=== PATIENT | female | born 1960 | race Caucasian/White ===

== ENCOUNTER 2022-07-17 08:05 | Observation (INO) | payer OTHER, MEDICAID, SELFPAY ==
[2022-07-17] VITALS (11 sets, daily range): BP systolic 91–139; BP diastolic 57–83; PULSE 68–99; RESP 16–20; TEMP 36.6–37.2; O2SAT 92–99; BMI 25.6; BMI 26.6
[2022-07-17 08:50] LABS: Urine Appearance Clear (CLEAR); Urine Color Yellow (Yellow)
[2022-07-17 08:51] LABS: Add Urine Microscopic? YES; Bilirubin Urine Neg (Negative); Blood Urine 3+ (Negative); Glucose Urine UA Norm (Normal); Ketones Urine 1+ (Negative); Leukocyte Esterase Urine Negative (Negative); Nitrate Urine Negative (Negative); Protein Urine Trace (Negative); Urobilinogen Urine Neg (Negative); pH Urine 6 (5-7)
[2022-07-17 08:57] LABS: Add Urine Culture? No; Mucus Urine 1+ /hpf; Squamous Epithelial Cell Urine 0-4 /hpf (0-5)
[2022-07-17 09:05] LABS: Basophils % 0.3 %; Eosinophils % 0.1 %; Hematocrit 43.9 % (37.0-47.0); Hemoglobin 14.3 g/dL (11.5-15.3); Lymphocytes # 2.1 10^3/uL (0.8-4.8); Lymphocytes % 15.1 %; Mean Corpuscular HGB Conc 32.6 g/dL (30.0-36.0); Mean Corpuscular Hemoglobin 28.3 pg (28.0-34.0); Mean Corpuscular Volume 86.8 fl (81-99); Mean Platelet Volume 9.7 fL (7.4-10.4); Monocytes # 0.9 10^3/uL (0.2-0.9); Monocytes % 6.6 %; Neutrophils # 10.63 10^3/uL (1.8-7.7); Neutrophils % 77.2 %; Nucleated Red Blood Cells % 0 %; Platelet Count 315 10^3/cmm (130-400); Red Blood Count 5.06 10^6/uL (4.1-5.3); Red Cell Distribution Width 13.2 % (12.1-15.1); White Blood Count 13.7 10^3/uL (4.0-10.0)
[2022-07-17 09:27] LABS: Alanine Aminotransferase 22 U/L (0-33); Albumin Level 4.6 g/dL (3.5-5.2); Alkaline Phosphatase 97 U/L (35-105); Aspartate Amino Transferase 15 U/L (0-32); Blood Urea Nitrogen 10 mg/dL (8-23); Calcium 9.6 mg/dL (8.5-10.5); Carbon Dioxide 26 mmol/L (22-29); Chloride 96 mmol/L (98-107); Globulin 3.1 g/dL (1.3-4.6); Glomerular Filtration Rate 84.5 mL/min (90-130); Glucose 111 mg/dL (65-115); Lipase 17 U/L (13-60); Osmolality Calculated 276 mOsm/kg (285-295); Sodium 133 mmol/L (136-145); Total Bilirubin 0.6 mg/dL (0.15-1.2); Total Protein 7.7 g/dL (6.6-8.7)
--- NOTE | 2022-07-17 09:29 | CT_ITS ---
WS: [id number] CT ABDOMEN PELVIS TECHNIQUE: Contrast-enhanced CT of the abdomen and pelvis with coronal and sagittal reformatted image s. CLINICAL INFORMATION: bilat lower abd pain; ? lower gi bleeding COMPARISON: None. DLP: 452.[address] scans at [facility] use at least one of these dose optimization techniques: automated e xposure control; mA and/or kV adjustment per patient size (includes targeted exams where dose is matc hed to clinical indication); or iterative reconstruction. FINDINGS: Diffuse thickening with significant inflammatory stranding involving the sigmoid colon compatible wit h acute diverticulitis. Surrounding inflammatory stranding and edema. Small amount of associated flui d and free fluid in the pelvis. No evidence of drainable abscess or fluid collection. Recommend follo w-up to resolution. Lung bases are well aerated. Mild diffuse fatty infiltration of the liver. RIGHT hepatic cyst or cave rnous hemangioma measuring 3.3 CM. Normal gallbladder. Normal spleen. Normal GE junction. Normal panc reatic parenchymal enhancement. Normal portal vein and splenic vein. Normal caliber abdominal aorta. Celiac and SMA are patent. A few reactive lower abdominal and aortic bifurcation lymph nodes. Induration in the lower abdominal mesen lexi from the diverticulitis. Adrenal glands are normal. Normal renal parenchymal enhancement. Small bilateral renal cysts. No hydronephrosis. 2.6 cm LEFT lower pole renal cyst. Benign bone islands in t he ileum. CT/CT abdomen pelvis w con* [id number] IMPRESSION: 1. Acute diverticulitis with prominent diffuse inflammatory stranding and olga a with a small amount of surrounding fluid about the sigmoid colon. No drainabl e abscess or fluid collection. Recommend follow-up to resolution. 2. A few reactive lymph nodes in the lower abdomen and bifurcation. 3. No other acute findings. Notified Sheltonritesh Magaña MD at 07/17/2022 10:15 AM.
--- NOTE | 2022-07-17 09:30 | W.ED.ABDPA2 ---
HPI - Abdominal Pain General: Chief Complaint: Abdominal Pain Stated Complaint: sent for CT scan Time Seen by Provider: 07/17/22 08:39 Source: patient Mode of arrival: ambulatory Limitations: no limitations History of Present Illness: Patient with complaints of bilateral lower abdominal pain since yesterday. She states the pain has been constant. She states the pain is sharp. She states she had a low-grade temperature of 100 last night and some chills. No fever today. She also complains of some mucoid stools since yesterday. She states there is a pink tinge to her stool this morning. See nursing assessment. Patient was seen and [facility] today and referred here for CT scan of the abdomen. Patient states she has a history of chronic microscopic hematuria. She states she was diagnosed with urinary tract infection 2 weeks ago placed on Bactrim. Possible history also includes internal hemorrhoids. She denies any previous abdominal surgery. Associated Symptoms: Reports change in bowel habits; Denies chills, dysuria, fever(s), nausea and vomiting Review of Systems Const: Denies: fever(s) or chills Eyes: Denies: change in vision ENMT: Denies: throat pain Card: Denies: chest pain or palpitations Resp: Denies: dyspnea or wheezing GI: Reports: abdominal pain, change in bowel habits and mucus in stool; Denies: nausea or vomiting : Denies: flank pain or dysuria Musc: Denies: neck pain or back pain Skin/Breast: Denies: rash or pruritus Neuro: Denies: headache(s) or numbness in extremities Psych: Denies: anxiety Joel/Lymph: Denies: enlarged lymph nodes PFSH ED Supplemental PFS Information: No previous abdominal surgery. Physical Exam Const: COMMON NORMALS: no acute distress, patient oriented x3, alert and well nourished GENERAL APPEARANCE: cooperative HENMT: COMMON NORMALS: normocephalic and atraumatic HEAD & SCALP: normocephalic and atraumatic Eye: COMMON NORMALS: EOMs intact bilaterally Neck/C-Spine: COMMON NORMALS: full ROM, no lymphadenopathy, supple and no JVD Lymph: LYMPHATIC: no lymphadenopathy noted Chest: COMMONS NORMALS: normal inspection of the chest and normal palpation of entire chest wall Resp: COMMON NORMALS: normal respiratory effort, No retractions, No use of accessory muscles and clear to auscultation bilaterally AUSCULTATION: clear to auscultation bilaterally Cardio: COMMON NORMALS: no JVD, regular rate, regular rhythm and Peripheral pulses 2+ throughout RATE: regular rate RHYTHM: regular rhythm PERIPHERAL PULSES: Peripheral pulses 2+ throughout GI: COMMON NORMALS: Soft to palpation PALPATION: Yes Soft to palpation OTHER: Mild right lower quadrant subpubic and left lower quadrant abdominal pain. No guarding or rebound. No masses palpated. Normoactive bowel sounds throughout. No pulsatile masses or bruits. : COMMON NORMALS: Yes no CVA tenderness BLADDER/KIDNEY EXAM: Yes no CVA tenderness OTHER: I inspected the anus and saw nothing acute. Anus appears normal. Anal exam attended by nurse anesthesiology physician assistant. Back/Pelvis: COMMON NORMALS: no CVA tenderness Extremity: COMMON NORMALS: normal to inspection and full ROM Neuro: COMMON NORMALS: patient oriented x3, CN's II-XII intact bilaterally, moves all extremities, no focal motor deficits and no sensory deficits noted SENSORIUM/ORIENTATION: Yes alert Psych: COMMON NORMALS: mental status grossly normal, Normal thought process present, cooperative, normal affect and speech normal SPEECH: Yes normal speech THOUGHT PROCESS: Normal thought process present Skin: COMMON NORMALS: no rashes or lesions noted GENERAL SKIN EXAM: no rashes or lesions noted Course Vital Signs: Vital signs: Vital Signs Temperature 99.0 F 07/17/22 08:18 Pulse Rate 72 07/17/22 10:38 Respiratory Rate 18 07/17/22 10:38 Blood Pressure 129/68 07/17/22 10:38 Pulse Oximetry 97 07/17/22 10:38 Oxygen Delivery Me thod 07/17/22 10:38 MDM - Abdominal Pain Medical Decision Making 1040: Discussed with hospitalist Dr. Gabriel. Patient will be observation patient to medical floor. Due to the severity of the diverticulitis, patient will need to be observed in the hospital overnight. Lab Data Patient has microscopic hematuria. : 07/17/22 08:54 07/17/22 08:54 Labs/Radiology: Radiology Impressions Abdomen/Pelvis CT 07/17/22 09:29 IMPRESSION: 1. Acute diverticulitis with prominent diffuse inflammatory stranding and edema with a small amount of surrounding fluid about the sigmoid colon. No drainable abscess or fluid collection. Recommend follow-up to resolution. 2. A few reactive lymph nodes in the lower abdomen and bifurcation. 3. No other acute findings. Notified Sheltonritesh Magaña MD at 07/17/2022 10:15 AM. Laboratory Results WBC 13.7 10^3/uL (4.0-10.0) H 07/17/22 08:54 RBC 5.06 10^6/uL (4.1-5.3) 07/17/22 08:54 Hgb 14.3 g/dL (11.5-15.3) 07/17/22 08:54 Hct 43.9 % (37.0-47.0) 07/17/22 08:54 MCV 86.8 fl (81-99) 07/17/22 08:54 MCH 28.3 pg (28.0-34.0) 07/17/22 08:54 MCHC 32.6 g/dL (30.0-36.0) 07/17/22 08:54 RDW 13.2 % (12.1-15.1) 07/17/22 08:54 Plt Count 315 10^3/cmm (130-400) 07/17/22 08:54 MPV 9.7 fL (7.4-10.4) 07/17/22 08:54 Neut % (Auto) 77.2 % 07/17/22 08:54 Lymph % (Auto) 15.1 % 07/17/22 08:54 Rhea % (Auto) 6.6 % 07/17/22 08:54 Eos % (Auto) 0.1 % 07/17/22 08:54 Baso % (Auto) 0.3 % 07/17/22 08:54 Neut # (Auto) 10.63 10^3/uL (1.8-7.7) H 07/17/22 08:54 Lymph # (Auto) 2.1 10^3/uL (0.8-4.8) 07/17/22 08:54 Rhea # (Auto) 0.9 10^3/uL (0.2-0.9) 07/17/22 08:54 Eos # (Auto) 0.0 10^3/uL (0.0-0.8) 07/17/22 08:54 Baso # (Auto) 0.0 10^3/uL (0.0-0.1) 07/17/22 08:54 Nucleated RBC % (auto) 0 % 07/17/22 08:54 Nucleated RBCs # 0.0 /100WBC 07/17/22 08:54 Sodium 133 mmol/L (136-145) L 07/17/22 08:54 Potassium 4.0 mmol/L (3.5-5.1) 07/17/22 08:54 Chloride 96 mmol/L (98-107) L 07/17/22 08:54 Carbon Dioxide 26 mmol/L (22-29) 07/17/22 08:54 Anion Gap 15.0 (5-19) 07/17/22 08:54 BUN 10 mg/dL (8-23) 07/17/22 08:54 Creatinine 0.7 mg/dL (0.5-0.9) 07/17/22 08:54 GFR Calculation 84.5 mL/min (90-130) L 07/17/22 08:54 Glucose 111 mg/dL (65-115) 07/17/22 08:54 Calculated Osmolality 276 mOsm/kg (285-295) L 07/17/22 08:54 Calcium 9.6 mg/dL (8.5-10.5) 07/17/22 08:54 Total Bilirubin 0.6 mg/dL (0.15-1.2) 07/17/22 08:54 AST 15 U/L (0-32) 07/17/22 08:54 ALT 22 U/L (0-33) 07/17/22 08:54 Alkaline Phosphatase 97 U/L (35-105) 07/17/22 08:54 Total Protein 7.7 g/dL (6.6-8.7) 07/17/22 08:54 Albumin 4.6 g/dL (3.5-5.2) 07/17/22 08:54 Globulin 3.1 g/dL (1.3-4.6) 07/17/22 08:54 Lipase 17 U/L (13-60) 07/17/22 08:54 Urine Color Yellow (Yellow) 07/17/22 08:41 Urine Appearance Clear (CLEAR) 07/17/22 08:41 Urine pH 6 (5-7) 07/17/22 08:41 Ur Specific [place] 1.030 (1.005-1.030) 07/17/22 08:41 Urine Protein Trace (Negative) 07/17/22 08:41 Urine Glucose (UA) Norm (Normal) 07/17/22 08:41 Urine Ketones 1+ (Negative) H 07/17/22 08:41 Urine Blood 3+ (Negative) H 07/17/22 08:41 Urine Nitrate Negative (Negative) 07/17/22 08:41 Urine Bilirubin Neg (Negative) 07/17/22 08:41 Urine Urobilinogen Neg mg/dL (Negative) 07/17/22 08:41 Ur Leukocyte Esterase Negative (Negative) 07/17/22 08:41 Urine RBC 10-15 /hpf (0-2) H 07/17/22 08:41 Urine WBC None /hpf (0-5) 07/17/22 08:41 Ur Squamous Epith Cells 0-4 /hpf (0-5) H 07/17/22 08:41 Amorphous Sediment Not Reportable 07/17/22 08:41 Urine Bacteria None /hpf (NONE) 07/17/22 08:41 Urine Mucus 1+ /hpf 07/17/22 08:[address] Abd/Pel: Radiologist's impression: Patient has acute diverticulitis with severe inflammatory changes around the distal colon. There is moderate amount of fluid in the pelvis. No perforation found per radiologist. Radiologist deems the diverticulitis is severe. Discharge Plan Discharge Patient Disposition: Placed in Observation Clinical Impression: Diverticulitis Coding Level of Care Code ED Sheather for Chg Fwd Exam Comprehensive
[2022-07-17] MEDS: iohexol 350 mg/mL 100 mL Btl IV (09:53)
[2022-07-17] MEDS: ceFOXitin 2,000 MG in sodium chloride 0.9% (plus) 50 ML 100 MG IV (10:35)
--- NOTE | 2022-07-17 11:08 | PM.HP ---
Providers/Chief Complaint Admitting Physician: Jim Gabriel MD Chief Complaint: sent for CT scan History of Present Illness Yanci Webb is a 61 year old female presenting to the emergency department with complaints of lower quadrant abdominal pain, more in the suprapubic area since yesterday. Pain has been severe at times, increasing when she passes mucus with stooling. She reports chills last night. Has not taken her temperature. No nausea or vomiting. Had an infection several weeks ago, UTI for which she received Bactrim. Had some diarrhea initially with the treatment which was only 3 days but this went away over 3 days ago. No prior history of diverticulitis. No history of colonoscopy. No family history of colon cancer. Review of Systems General: Reports: 10 or more systems reviewed and unremarkable except in HPI and below Const: Reports: chills and fatigue Eyes: Denies: change in vision ENMT: Denies: throat pain Card: Denies: chest pain Resp: Denies: dyspnea GI: Reports: abdominal pain and GI cramping; Denies: nausea, vomiting, hematochezia or melena : Denies: flank pain Musc: Denies: neck pain Skin/Breast: Denies: rash Neuro: Denies: headache(s) Psych: Reports: anxiety and depression Endo: Denies: polyuria Joel/Lymph: Denies: easy bruising All/Imm: Denies: urticaria Medications/Allergies Home Medications Medication Instructions Recorded Confirmed Last Taken Type cholecalciferol (vitamin D3) 25 1,000 unit PO EVERY OTHER DAY 07/17/22 07/17/22 Unknown History mcg (1,000 unit) tablet (Vitamin D3) multivitamin with minerals-folic 2 tab PO DAILY 07/17/22 07/17/22 07/16/22 History acid 150 mcg chewable tablet mvi,min-folic acid 400 mcg-black 1 tab PO DAILY 07/17/22 07/17/22 07/16/22 History coh 40 mg-isoflav 40 mg-jujube tablet (Estroven Menopause) venlafaxine 75 mg capsule,extended 75 mg PO QAM 07/17/22 07/17/22 07/16/22 History release 24 hr (Effexor XR) Allergies Allergy/AdvReac Type Severity Reaction Status Date / Time tetracycline Allergy Unknown Verified 07/17/22 08:49 PFSH Acute PFSH: Medical History (Updated 07/17/22 @ 11:13 by Jim Gabriel MD) Depression with anxiety Microscopic hematuria Family History (Updated 07/17/22 @ 11:11 by Jim Gabriel MD) Other CAD (coronary artery disease) Stroke Social History (Updated 07/17/22 @ 11:11 by Jim Gabriel MD) Smoking and tobacco status: never smoked Alcohol intake: current Alcohol intake frequency: few times a week Substance/Drug Use: never Other PFSH information: Supplemental [facility] Information: Denies any previous surgeries Vitals/I&O/Wt Last Vital Signs Temp 99.0 F 07/17/22 08:18 Pulse 72 07/17/22 10:38 Resp 18 07/17/22 10:38 BP 129/68 07/17/22 10:38 Pulse Ox 97 07/17/22 10:38 O2 Del Method 07/17/22 10:38 Weight last 48 hrs Weight 63.503 kg Physical Exam Narrative: General exam is a white female, who appears somewhat anxious but is able to communicate her condition well. HEENT: Atraumatic and normocephalic. Pupils equally round. Oropharynx clear. Neck is supple no lymphadenopathy or thyromegaly Cardiovascular regular rate and rhythm without murmur, no S3 or S4 Lungs clear no wheezing or crackles Abdomen is soft. Positive bowel sounds. Tenderness lower quadrants. No rebound. Skin no rash Neuro no obvious focal deficits. Data : 07/17/22 08:54 07/17/22 08:54 Other Labs: LFTs are within normal limits Lipase normal Calcium 9.6, normal Urinalysis with 10-15 red blood cells, no white blood cells, no bacteria Abdominal pelvis CT demonstrates acute diverticulitis, but the sigmoid colon with a small amount of surrounding fluid and a few reactive lymph nodes. No definite abscess. No evidence of perforation. A&P Assessment and plan (1) Diverticulitis: Patient presents with acute diverticulitis. She has significant pain, currently is adverse to p.o. intake, and having quite a bit of cramping with any bowel movement. With her elevated white blood cell count, small amount of fluid around the sigmoid colon it may be best to observe her in the hospital on IV antibiotics until improvement is made. Initiate IV Zosyn Secondary to a history of chills, slight elevation in temperature go ahead and obtain cultures. She may have already received 1 dose of Mefoxin from the emergency department prior to drawing of the culture. Repeat laboratory tomorrow, if clinically improving could consider discharge home on fluoroquinolone and Flagyl Secondary to her recent antibiotic use, will check a C. difficile toxin. This would certainly be unusual following 3 days of Bactrim but will need to exclude. Plan History of depression/anxiety. Continue patient's Effexor. Attestations Medical Necessity Statement*: Will need less than 2 midnight stay for evaluation and treatment of acute diverticulitis with IV antibiotics and close clinical monitoring. Coding Level of Care Code Acute [employer] Supervisor for Hari Renee Diagnoses Diverticulitis K57.92
[2022-07-17] MEDS: ondansetron 2 mg/ML SDV 2 mL 4 MG IVP (11:22)
[2022-07-17] MEDS: morphine 4 mg/mL SDV 1 mL IVP (11:22)
[2022-07-17] MEDS: venlafaxine ER (24HR) 75 mg Capsule PO (11:33)
[2022-07-17] MEDS: lactated ringers 1,000 ML 100 ML IV (11:33)
[2022-07-17] MEDS: piperacillin-tazobactam 3.375 GM in sodium chloride 0.9% (plus) 50 ML IV (17:16)
[2022-07-17] MEDS: acetaminophen 325 mg Tablet 650 MG PO (17:56)
[2022-07-18] VITALS: BP 103/63; PULSE 86; RESP 16; TEMP 36.5; O2SAT 97
[2022-07-18] MEDS: piperacillin-tazobactam 3.375 GM in sodium chloride 0.9% (plus) 50 ML IV ×2 (01:00→09:32)
[2022-07-18] MEDS: lactated ringers 1,000 ML 100 ML IV (01:01)
[2022-07-18] MEDS: acetaminophen 325 mg Tablet 650 MG PO (01:05)
[2022-07-18 03:49] VITALS: BP 94/55; PULSE 91; RESP 16; TEMP 36.6; O2SAT 97
[2022-07-18 06:05] LABS: Basophils % 0.3 %; Eosinophils % 0.4 %; Hematocrit 35.7 % (37.0-47.0); Hemoglobin 11.6 g/dL (11.5-15.3); Lymphocytes # 2.1 10^3/uL (0.8-4.8); Lymphocytes % 21.6 %; Mean Corpuscular HGB Conc 32.5 g/dL (30.0-36.0); Mean Corpuscular Hemoglobin 28.7 pg (28.0-34.0); Mean Corpuscular Volume 88.4 fl (81-99); Mean Platelet Volume 10.1 fL (7.4-10.4); Monocytes # 0.7 10^3/uL (0.2-0.9); Monocytes % 7.3 %; Neutrophils # 6.65 10^3/uL (1.8-7.7); Neutrophils % 70.2 %; Nucleated Red Blood Cells % 0 %; Platelet Count 209 10^3/cmm (130-400); Red Blood Count 4.04 10^6/uL (4.1-5.3); Red Cell Distribution Width 13.2 % (12.1-15.1); White Blood Count 9.5 10^3/uL (4.0-10.0)
[2022-07-18 06:31] LABS: Anion Gap 13.7 (5-19); Blood Urea Nitrogen 9 mg/dL (8-23); Calcium 8.7 mg/dL (8.5-10.5); Carbon Dioxide 28 mmol/L (22-29); Chloride 101 mmol/L (98-107); Glucose 88 mg/dL (65-115); Osmolality Calculated 286 mOsm/kg (285-295); Potassium 3.7 mmol/L (3.5-5.1); Sodium 139 mmol/L (136-145)
[2022-07-18 08:00] VITALS: BP 114/70; PULSE 92; RESP 16; TEMP 36.9; O2SAT 96
[2022-07-18 08:15] VITALS: PULSE 87; O2SAT 99
[2022-07-18] MEDS: venlafaxine ER (24HR) 75 mg Capsule PO (09:31)
--- NOTE | 2022-07-18 11:14 | PM.DCS ---
Discharge Providers Date of Admission: 07/17/22 14:24 Date of Discharge: July 18, 2022 Attending Provider at Admission: Jim Gabriel MD Attending Provider at Discharge: Jim Gabriel MD Diagnoses at Discharge Discharge Diagnosis (1) Diverticulitis: Status: Acute Reason for Visit Reason for Visit: sent for CT scan Hospital Course Hospital Course Yanci is a 61-year-old white female who presented to the emergency department with complaints of passing some mucus, abdominal pain. She was found to have sigmoid diverticulitis. She had had some chills at home but no documented fever. She had never previously had diverticulitis, and had no history of colonoscopy. She was placed in observation status, and IV Zosyn was initiated. The following day she was improved. She was able to tolerate clear liquids and then full liquids without significant increase in discomfort. The discomfort she had had the previous day had improved significantly. White blood cell count had come down to normal. She had no fevers. It was thought she could be discharged home on oral antibiotics. She will have close follow-up, with her primary care provider, consideration of colonoscopy in 6 weeks. She will return for any worsening symptoms. Risks and benefits discussed, and she had opportunity ask questions and agreed with the plan. Physical Exam Narrative: General exam no distress Neck is supple no lymphadenopathy thyromegaly Cardiovascular regular rate and rhythm without murmur Lungs clear no wheezing or crackles Abdomen soft nontender positive bowel sounds. Slight tenderness suprapubic region exam is deferred Extremities no cyanosis clubbing or edema Skin without rash Discharge Data Studies Completed and Pending Completed Studies During Hospitalization Category Date Time Status CT abdomen pelvis w con* [id number] Urgent Cat Scan 07/17/22 09:29 Completed Pending at discharge Category Date Time Status Blood Culture Stat Lab 07/17/22 11:30 Results C DIFF [Clostridioides Difficile PCR] Routine Lab 07/17/22 11:20 Uncollected Radiology Impressions Abdomen/Pelvis CT 07/17/22 09:29 IMPRESSION: 1. Acute diverticulitis with prominent diffuse inflammatory stranding and edema with a small amount of surrounding fluid about the sigmoid colon. No drainable abscess or fluid collection. Recommend follow-up to resolution. 2. A few reactive lymph nodes in the lower abdomen and bifurcation. 3. No other acute findings. Notified Sheltonritesh Magaña MD at 07/17/2022 10:15 AM. Laboratory Results WBC 9.5 10^3/uL (4.0-10.0) 07/18/22 05:30 RBC 4.04 10^6/uL (4.1-5.3) L 07/18/22 05:30 Hgb 11.6 g/dL (11.5-15.3) 07/18/22 05:30 Hct 35.7 % (37.0-47.0) L 07/18/22 05:30 MCV 88.4 fl (81-99) 07/18/22 05:30 MCH 28.7 pg (28.0-34.0) 07/18/22 05:30 MCHC 32.5 g/dL (30.0-36.0) 07/18/22 05:30 RDW 13.2 % (12.1-15.1) 07/18/22 05:30 Plt Count 209 10^3/cmm (130-400) D 07/18/22 05:30 MPV 10.1 fL (7.4-10.4) 07/18/22 05:30 Neut % (Auto) 70.2 % 07/18/22 05:30 Lymph % (Auto) 21.6 % 07/18/22 05:30 [place] % (Auto) 7.3 % 07/18/22 05:30 Eos % (Auto) 0.4 % 07/18/22 05:30 Baso % (Auto) 0.3 % 07/18/22 05:30 Neut # (Auto) 6.65 10^3/uL (1.8-7.7) 07/18/22 05:30 Lymph # (Auto) 2.1 10^3/uL (0.8-4.8) 07/18/22 05:30 [place] # (Auto) 0.7 10^3/uL (0.2-0.9) 07/18/22 05:30 Eos # (Auto) 0.0 10^3/uL (0.0-0.8) 07/18/22 05:30 Baso # (Auto) 0.0 10^3/uL (0.0-0.1) 07/18/22 05:30 Nucleated RBC % (auto) 0 % 07/18/22 05:30 Nucleated RBCs # 0.0 /100WBC 07/18/22 05:30 Sodium 139 mmol/L (136-145) 07/18/22 05:30 Potassium 3.7 mmol/L (3.5-5.1) 07/18/22 05:30 Chloride 101 mmol/L (98-107) 07/18/22 05:30 Carbon Dioxide 28 mmol/L (22-29) 07/18/22 05:30 Anion Gap 13.7 (5-19) 07/18/22 05:30 BUN 9 mg/dL (8-23) 07/18/22 05:30 Creatinine 0.6 mg/dL (0.5-0.9) 07/18/22 05:30 GFR Calculation 101.0 mL/min (90-130) 07/18/22 05:30 Glucose 88 mg/dL (65-115) 07/18/22 05:30 Calculated Osmolality 286 mOsm/kg (285-295) 07/18/22 05:30 Calcium 8.7 mg/dL (8.5-10.5) 07/18/22 05:30 Total Bilirubin 0.6 mg/dL (0.15-1.2) 07/17/22 08:54 AST 15 U/L (0-32) 07/17/22 08:54 ALT 22 U/L (0-33) 07/17/22 08:54 Alkaline Phosphatase 97 U/L (35-105) 07/17/22 08:54 Total Protein 7.7 g/dL (6.6-8.7) 07/17/22 08:54 Albumin 4.6 g/dL (3.5-5.2) 07/17/22 08:54 Globulin 3.1 g/dL (1.3-4.6) 07/17/22 08:54 Lipase 17 U/L (13-60) 07/17/22 08:54 Urine Color Yellow (Yellow) 07/17/22 08:41 Urine Appearance Clear (CLEAR) 07/17/22 08:41 Urine pH 6 (5-7) 07/17/22 08:41 Ur Specific [place] 1.030 (1.005-1.030) 07/17/22 08:41 Urine Protein Trace (Negative) 07/17/22 08:41 Urine Glucose (UA) Norm (Normal) 07/17/22 08:41 Urine Ketones 1+ (Negative) H 07/17/22 08:41 Urine Blood 3+ (Negative) H 07/17/22 08:41 Urine Nitrate Negative (Negative) 07/17/22 08:41 Urine Bilirubin Neg (Negative) 07/17/22 08:41 Urine Urobilinogen Neg mg/dL (Negative) 07/17/22 08:41 Ur Leukocyte Esterase Negative (Negative) 07/17/22 08:41 Urine RBC 10-15 /hpf (0-2) H 07/17/22 08:41 Urine WBC None /hpf (0-5) 07/17/22 08:41 Ur Squamous Epith Cells 0-4 /hpf (0-5) H 07/17/22 08:41 Amorphous Sediment Not Reportable 07/17/22 08:41 Urine Bacteria None /hpf (NONE) 07/17/22 08:41 Urine Mucus 1+ /hpf 07/17/22 08:41 Vitals Last Vital Signs Temp 98.4 F 07/18/22 08:00 Pulse 87 07/18/22 08:15 Resp 16 07/18/22 08:00 BP 114/70 07/18/22 08:00 Pulse Ox 99 07/18/22 08:15 O2 Del Method 07/18/22 08:15 Discharge Plan Discharge Patient Disposition: Home Condition: Stable Prescriptions: New metronidazole 500 mg tablet 500 mg PO Q8H 10 Days Qty: 30 0RF ciprofloxacin HCl [Cipro] 500 mg tablet 500 mg PO BID Qty: 20 0RF Continued Effexor XR 75 mg capsule,extended release 24hr 75 mg PO QAM Vitamin D3 25 mcg (1,000 unit) Tablet 1,000 unit PO EVERY OTHER DAY Centrum MultiGummies 150 mcg Tablet,Chewable 2 tab PO DAILY Estroven Menopause 400 mcg-40 mg- 40 mg-100 mg Tablet 1 tab PO DAILY Discharge Orders: Discharge Order (Routine); Ordered 07/18/22 Ordered By: Jim Gabriel Referrals: Dinesh Layne DO [Referring] - 4-7 days Discharge Diet: GI Soft Discharge Activity: Increase activity as tolerated Patient Instructions: Opioid Safety Activity Restrictions/Additional Instructions: Take all medicines prescribed Return for any worsening symptoms See your primary care provider 5 to 7 days. Consider colonoscopy 6 weeks Patient's Health Concerns: Abdominal pain Assessment: Diverticulitis Plan of Treatment: Finish 10 days of oral antibiotics Goals: No recurrent symptoms Discharge Attestations Time Spent in Discharge Care*: greater than 30 min Quality Metrics Clinical Quality Measures [ No reported AMI, CVA or VTE this stay] Coding Level of Care Code Acute g FW [place] note Diagnoses Diverticulitis K57.92
[2022-07-18 12:00] VITALS: BP 123/80; PULSE 87; RESP 16; TEMP 36.9; O2SAT 97
--- NOTE | 2022-07-18 13:21 | PC.CHAP ---
Pastoral Care Encounter/Spiritual Assessment Type of Contact [] Declined lathe mechanic visit [] Patient/Family/Request visit [] Outpatient visit [] Follow-up visit [] Physician referral [] Code/Alert [x] Routine visit [] Staff referral [] Actively dying [] Patient sleeping [] Family support [] [] Out of room [] Palliative care [] [x] Receiving care in room [] Pre-surgical visit [] Trauma [x] Long length of stay [] ICU visit [] Other: Relational/Emotional Strength [] Patient feels connected with others/family/visitors/staff [] Distress [] Loneliness/isolation [] Abandonment Spirituality of Patient [] Person of Malena [] Attends Cheondoism of their Malena [] Believes in Prayer [] Reads Bible or Caodaism materials [] There are Spiritual issues to be addressed Pnp Interventions [] Prayer [] Active listening [] Non-anxious presence [] Spiritual/emotional support [] Crisis/trauma care [] Spiritual counseling [] Bereavement support [] Provided bereavement packet [] Provided Bible/devotional materials [] Provided toy/stuffed animal, coloring book to patient or family member [] Provided Communion [] Anointing/[place] [] Salvation [] Completed spiritual assessment [] Other: Impact on Illness or Injury [] Angry [] Fearful [x] Anxious [] Often cries [] Exhaustion [] Unable to work [] Unable to attend shinto [] Unable to walk/stand [] Unable to read [] Unable to drive [] Unable to eat/drink [] Unable to sleep [] Unable to be with family [] Patient intubated [] Other: Summary senior has tests waiting doctors reprot postive has a good attitude well go go at some point Time spent with patient 10 mins
--- NOTE | 2022-07-18 13:24 | PC.CHAP ---
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 [] Patient/Family/Request visit [] Outpatient visit [] Follow-up visit [] Physician referral [] Code/Alert [] Routine visit [] Staff referral [] Actively dying [] Patient sleeping [] Family support [] [] Out of room [] Palliative care [] [] Receiving care in room [] Pre-surgical visit [] Trauma [] Long length of stay [] ICU visit [] Other: Relational/Emotional Strength [] Patient feels connected with others/family/visitors/staff [] Distress [] Loneliness/isolation [] Abandonment Spirituality of Patient [] Person of Malena [] Attends Sikh of their Malena [] Believes in Prayer [] Reads Bible or Buddhism materials [] There are Spiritual issues to be addressed Gastroenterology Teacher Interventions [] Prayer [] Active listening [] Non-anxious presence [] Spiritual/emotional support [] Crisis/trauma care [] Spiritual counseling [] Bereavement support [] Provided bereavement packet [] Provided Bible/devotional materials [] Provided toy/stuffed animal, coloring book to patient or family member [] Provided Communion [] Anointing/[place] [] Salvation [] Completed spiritual assessment [] Other: Impact on Illness or Injury [] Angry [] Fearful [] Anxious [] Often cries [] Exhaustion [] Unable to work [] Unable to attend mandaeism [] Unable to walk/stand [] Unable to read [] Unable to drive [] Unable to eat/drink [] Unable to sleep [] Unable to be with family [] Patient intubated [] Other: Summary going home3 Time spent with patient
--- NOTE | 2022-07-18 13:25 | PC.CHAP ---
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 [] Patient/Family/Request visit [] Outpatient visit [] Follow-up visit [] Physician referral [] Code/Alert [x] Routine visit [] Staff referral [] Actively dying [] Patient sleeping [] Family support [] [] Out of room [] Palliative care [] [x] Receiving care in room [] Pre-surgical visit [] Trauma [] Long length of stay [] ICU visit [] Other: Relational/Emotional Strength [x] Patient feels connected with others/family/visitors/staff [] Distress [] Loneliness/isolation [] Abandonment Spirituality of Patient [x] Person of Malena [] Attends Yazidi of their Malena [x] Believes in Prayer [] Reads Bible or Bahai materials [] There are Spiritual issues to be addressed Expenditure Requisition Clerk Interventions [x] Prayer [x] Active listening [x] Non-anxious presence [x] Spiritual/emotional support [] Crisis/trauma care [x] Spiritual counseling [] Bereavement support [] Provided bereavement packet [] Provided Bible/devotional materials [] Provided toy/stuffed animal, coloring book to patient or family member [] Provided Communion [] Anointing/[place] [] Salvation [x] Completed spiritual assessment [] Other: Impact on Illness or Injury [] Angry [] Fearful [] Anxious [] Often cries [] Exhaustion [] Unable to work [] Unable to attend mandaeism [] Unable to walk/stand [] Unable to read [] Unable to drive [] Unable to eat/drink [] Unable to sleep [] Unable to be with family [] Patient intubated [] Other: Summary has steches on o na open wound on neck is going home +1 Time spent with patient 10 mins
[2022-07-18 14:12] VITALS: BP 123/80; PULSE 87; RESP 16; TEMP 36.9; O2SAT 97
== END 2022-07-18 14:00 | disposition home or self-care (01) ==
LOC: ER 11:04 → MEDSURG 14:25
PROVIDERS: Admitting Provider Internal Medicine; Emergency Provider Family Medicine; Visit Provider Internal Medicine
DX: K57.92 Diverticulitis of intestine, part unspecified, without perforation or abscess without bleeding (principal)
CPT/HCPCS: 74177; 80048; 80053; 81001; 83690; 85025; 87040; 96365; 96375; 99285; G0378; J0694; J2270; J2405; J2543; Q9967

== ENCOUNTER → 2024-04-13 08:35 | Outpatient (CLI) | payer MEDICARE, SELFPAY ==
--- NOTE | 2024-04-13 08:53 | MR_ITS ---
WS: [id number] MRI BRAIN WITH HIGH-RESOLUTION IMAGING THROUGH THE INTERNAL AUDITORY CANALS WITHOUT AND WITH CONTRAST HISTORY: LEFT hearing loss. COMPARISON: None available. TECHNIQUE: Multiplanar, multisequence imaging is performed through the brain. Additional 3 mm imaging performed in multiple planes through the internal auditory canal. Postcontrast imaging with 13 ml's of MultiHance. No acute intracranial hemorrhage, midline shift, edema or mass effect. Very mild atrophy and small vessel ischemic disease. No prior large territory infarct. Ventricles and extra-axial spaces are normal. Normal hippocampal formations. Normal appearance of the orbits and globes. No inferior displacement of cerebellar tonsils. Clivus and pituitary gland are normal. Internal and external auditory canals: Unremarkable. Cranial nerves VII and VIII complexes: Unremarkable. No enhancement or mass. Cerebellopontine angles: Normal. Paranasal sinuses: Normal. Mastoid air cells: Moderate amount of fluid and increased T2 signal in the LEFT mastoid air cells. RI GHT mastoid air cells are clear. No signal abnormality extending along the internal auditory canal or eustachian tube. Calvarium and scalp: Normal. Visualized mechoopda of Richard and dural venous sinuses demonstrate no abnormality. MR/MR iac's wo/w con* [id number] IMPRESSION: 1. No mass or abnormal enhancement at the internal auditory canals or cerebell opontine angles. 2. Very minimal small vessel ischemic disease. 3. Moderate LEFT mastoid air cell effusion.
[2024-04-13] MEDS: gadobenate dimeglumine 20 mL vial IV (09:44)
== END | disposition home or self-care (01) ==
LOC: RAD 08:34
PROVIDERS: Visit Provider Otolaryngology
DX: H90.3 Sensorineural hearing loss, bilateral (principal); H74.8X2 Other specified disorders of left middle ear and mastoid
CPT/HCPCS: 70553; A9577